=== PATIENT | male | born 1945 | race Caucasian/White ===

== ENCOUNTER → 2017-01-06 | Emergency (ER) | payer MEDICARE ==
[~2017-01-06] MED LIST: ADRENAL COMPLEX; ARICEPT5 MG PO; ASPIRIN EC81 MG PO; AUGMENTIN875 MG PO; COLACE100 MG PO; DETOX PO; ELAVIL25 MG PO; GLUCOPHAGE500 MG PO; LIPITOR80 MG PO; LOPRESSOR25 MG PO; NAPROSYN500 MG PO; PLAVIX75 MG PO; PRILOSEC20 MG PO; PROTONIX40 MG PO; REGLAN5 MG PO; SYMBICORT 16010.2 GM INH; TRADJENTA5 MG PO; VITAMIN B-1000 MCG/M SUB-Q; ZANTAC (NON-FO150 MG PO; ZESTRIL2.5 MG PO; [UNRECOGNIZED DRUG - OTHER] PO
== END | disposition disaster alternative care site (69) ==
LOC: GAMB 04:52 → GMED 04:52
DX: R53.1 Weakness (principal); C34.90 Malignant neoplasm of unspecified part of unspecified bronchus or lung; W06.XXXA Fall from bed, initial encounter; Y93.9 Activity, unspecified